=== PATIENT | male | born 1980 | race African-American/Black ===

== ENCOUNTER 2018-01-05 20:23 | Emergency (ER) | payer SELFPAY ==
[~2018-01-05] VITALS: Ht 182.9 cm; Wt 107.0 kg
[2018-01-05 20:24] VITALS: BP 145/84
--- NOTE | 2018-01-05 20:48 | PHYS DOC ---
Adult General Chief Complaint Chief Complaint: LACERATION/AVULSION HPI HPI Patient is a 38 year old male presents to the ED complaining of left eyelid laceration times one hour ago. Patient states he was playing baseball and he collided with another teammate when trying to catch a pop fly. Describes the pain as sharp. Rates the pain as 3 out of 10. Denies LOC, neck pain, vision changes, nausea/vomiting, headache, dizziness, weakness, chest pain, shortness of breath or fever. Review of Systems Review of Systems Constitutional: Denies fever or chills [] Eyes: Complains of left Eyelid laceration Denies change in visual acuity, redness, or eye pain [] HENT: Denies nasal congestion or sore throat [] Respiratory: Denies cough or shortness of breath [] Cardiovascular: No additional information not addressed in HPI [] GI: Denies abdominal pain, nausea, vomiting, bloody stools or diarrhea [] : Denies dysuria or hematuria [] Musculoskeletal: Denies back pain or joint pain. Integument: Denies rash or skin lesions [] Neurologic: Denies headache, focal weakness or sensory changes [] All other systems were reviewed and found to be within normal limits, except as documented in this note. Current Medications Current Medications Current Medications Medications (Trade) Dose Ordered Sig/June Start Time Stop Time Status Last Admin Dose Admin Diphtheria/ Tetanus/Acell Pertussis (Boostrix) 0.5 ml ONCE ONCE 01/05/18 21:15 01/05/18 21:16 DC 01/05/18 21:06 0.5 ML Lidocaine/Sodium Bicarbonate (Buffered Lidocaine 1%) 3 ml 1X ONCE 01/05/18 21:15 01/05/18 21:16 DC 01/05/18 21:03 3 ML Allergies Allergies Allergies Coded Allergies Type Severity Reaction Last Updated Verified No Known Drug Allergies 01/05/18 No Physical Exam Physical Exam Constitutional: Well developed, well nourished, no acute distress, non-toxic appearance. [] HENT: Normocephalic, atraumatic, bilateral external ears normal, oropharynx moist, no oral exudates, nose normal. [] Eyes: PERRLA, EOMI, conjunctiva normal, no discharge. 3 cm left eyelid laceration. [] Neck: Normal range of motion, no tenderness, supple, no stridor. [] Cardiovascular:Heart rate regular rhythm, no murmur [] Lungs & Thorax: Bilateral breath sounds clear to auscultation [] Skin: Warm, dry, no erythema, no rash. [] Neurologic: Alert and oriented X 3, normal motor function, normal sensory function, no focal deficits noted. [] Psychologic: Affect normal, judgement normal, mood normal. [] Current Patient Data Vital Signs Vital Signs Date Time Temp Pulse Resp B/P (MAP) Pulse Ox O2 Delivery O2 Flow Rate FiO2 01/05/18 20:24 99.3 72 18 145/84 (104) 100 Room Air 99.3 EKG EKG [] Radiology/Procedures Radiology/Procedures [] Course & Med Decision Making Course & Med Decision Making Pertinent Labs and Imaging studies reviewed. (See chart for details) []No LOC or bony tenderness. EOM intact. Laceration repaired. No complications. Tetanus updated. Discussed symptomatic treatment and wound care at home. Patient able to ambulate without assistance. Discussed follow-up for wound reevaluation in 3 days. Provided contact information/education. Discussed reasons to return to the ED. Patient understands and agrees with plan. Dragon Disclaimer Dragon Disclaimer This electronic medical record was generated, in whole or in part, using a voice recognition dictation system. Departure Departure Impression: Primary Impression: Eyelid laceration Disposition: 01 HOME, SELF-CARE Condition: IMPROVED Referrals: SINDI MARTEL MD Patient Instructions: Laceration Care, Adult Laceration/Wound Repair Laceration/Wound Repair : Wound Location: face (left eyelid) Wound's Depth, Shape: superficial Wound Length (cm): 3 Wound Explored: clean Irrigated w/ Saline (ccs): 500 Betadine Prep?: Yes Anesthesia: 1% Lidocaine Volume Anesthetic (ccs): 1 Wound Repaired With: sutures Suture Size/Type: 5:0 Number of Sutures: 6 Sterile Dressing Applied?: Yes Progress Well tolerated. No complications. RITU PARRISH Jan 05, 2018 20:47
[2018-01-05] MEDS ORDERED: LIDOCAINE WITH 8.4% SOD BICARB 3 ML DISP.SYRIN. INJ ONE (21:15)
[2018-01-05] MEDS ORDERED: DIPHTH,PERTUSS(ACELL),TET TOX 0.5 ML DISP.SYRIN. VAX IM ONE (21:15)
== END 2018-01-05 21:16 | disposition home or self-care (01) ==
LOC: ER 20:23
DX: S01.112A Laceration without foreign body of left eyelid and periocular area, initial encounter (principal); W51.XXXA Accidental striking against or bumped into by another person, initial encounter; Y93.64 Activity, baseball; Y92.89 Other specified places as the place of occurrence of the external cause; Y99.8 Other external cause status
CPT/HCPCS: 12013; 90471; 90715; 99283

== ENCOUNTER 2018-01-12 19:13 | Emergency (ER) | payer SELFPAY ==
[~2018-01-12] VITALS: Ht 182.9 cm; Wt 107.0 kg
[2018-01-12 19:30] VITALS: BP 145/89
--- NOTE | 2018-01-12 19:41 | PHYS DOC ---
Past Medical History Past Medical History: No Pertinent History Past Surgical History: No Surgical History Alcohol Use: Rarely Drug Use: None Adult General Chief Complaint Chief Complaint: SUTURE/STAPLE REMOVAL HPI HPI Patient is a 38 year old M who presents for suture removal. No complaints. Review of Systems Review of Systems Constitutional: Denies fever or chills [] Integument: sutures over left eye All other systems were reviewed and found to be within normal limits, except as documented in this note. Allergies Allergies Allergies Coded Allergies Type Severity Reaction Last Updated Verified No Known Drug Allergies 01/05/18 No Physical Exam Physical Exam Constitutional: Well developed, well nourished, no acute distress, non-toxic appearance. [] HENT: Normocephalic, atraumatic Skin: Warm, dry, wound edges well approximated, no signs of infection Neurologic: Alert and oriented X 3, normal motor function, normal sensory function, no focal deficits noted. [] Psychologic: Affect normal, judgement normal, mood normal. [] Current Patient Data Vital Signs Vital Signs Date Time Temp Pulse Resp B/P (MAP) Pulse Ox O2 Delivery O2 Flow Rate FiO2 01/12/18 19:30 98.0 71 16 145/89 (107) 97 Room Air 98.0 EKG EKG [] Radiology/Procedures Radiology/Procedures [] Course & Med Decision Making Course & Med Decision Making Pertinent Labs and Imaging studies reviewed. (See chart for details) Plan: home to rest, f/u with PCP, return precautions reviewed Dragon Disclaimer Dragon Disclaimer This electronic medical record was generated, in whole or in part, using a voice recognition dictation system. Departure Departure Impression: Primary Impression: Visit for suture removal Disposition: HOME, SELF-CARE Condition: GOOD Referrals: NO PCP (PCP) Patient Instructions: Suture Removal ARIADNA POOLE EMERGENCY DEPARTMENT NURSE Jan 12, 2018 19:41
== END 2018-01-12 19:57 | disposition home or self-care (01) ==
LOC: ER 19:13
DX: S01.112D Laceration without foreign body of left eyelid and periocular area, subsequent encounter (principal); X58.XXXD Exposure to other specified factors, subsequent encounter
CPT/HCPCS: 99281